=== PATIENT | male | born 1985 | race African-American/Black ===

== ENCOUNTER 2016-06-24 20:41 | Emergency (ER) | payer OTHER, MEDICARE ==
[~2016-06-24 20:41] MED LIST: NAPR500 PO
[2016-06-24 20:57] VITALS: BP 130/85; PULSE 93; RESP 16; O2SAT 99
[2016-06-24] MEDS ORDERED: VENTAER INH (21:02)
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
[2016-06-24] MEDS ORDERED: TETANUS/DIPHTHERIA TOXOID ADULT 0.5 ML VIAL IM ONE (21:45)
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
== END 2016-06-24 23:42 | disposition home or self-care (01) ==
LOC: NEPD 20:41
DX: S70.212A Abrasion, left hip, initial encounter (principal); S80.212A Abrasion, left knee, initial encounter; V09.09XA Pedestrian injured in nontraffic accident involving other motor vehicles, initial encounter; Z23 Encounter for immunization
CPT/HCPCS: 73502; 73564; 90471; 90714